=== PATIENT | male | born 1965 | race Caucasian/White ===

== ENCOUNTER 2017-04-04 09:11 | Day surgery (SDC) | payer BC ==
[~2017-04-04 09:11] MED LIST: Acetaminophen TAB* 325 MG PO PRN; Buffered Lidocaine 0.9% SYRIN* 5 ML/SYR SYRINGE INTRADERM ONE
[2017-04-04] MEDS ORDERED: Midazolam* 1 MG/ML 2 ML VIAL (2 MG) ONE ×2 (10:07→10:43)
[2017-04-04] MEDS ORDERED: fentaNYL* 50 MCG/ML 2 ML VIAL (100 MCG VIAL) ONE (10:40)
[2017-04-04 11:29] VITALS: BP 115/76
[2017-04-04] MEDS ORDERED: Lidocaine 1% MPF* 2 ML VIAL ONE (11:43)
[2017-04-04] MEDS ORDERED: Tetracaine 0.5% OPTH.SOL 4 ML* 1 DROP BTL ONE (11:43)
[2017-04-04] MEDS ORDERED: Povidone Iodine 5% OPTH* 30 ML BTL ONE (11:43)
[2017-04-04] MEDS ORDERED: Neomycin/Polymy/Dex OPHTH.OIN* 3.5 GM ONE (11:43)
[2017-04-04] MEDS ORDERED: Phenylephrine 2.5% OPTH.SOL* 2 ML BTL ONE (11:43)
[2017-04-04] MEDS ORDERED: acetaZOLAMIDE TAB* 250 MG ONE (11:43)
[2017-04-04] MEDS ORDERED: Tropicamide 1% OPTH.SOL* BTL ONE (11:43)
[2017-04-04] MEDS ORDERED: Cyclopentolate 1% OPTH.SOL* 2 ML BTL ONE (11:43)
[2017-04-04] MEDS ORDERED: Ketorolac 0.5% OPHTH (NF) 0.5 % 5 ML BTL ONE (11:43)
--- NOTE | 2017-04-04 22:03 | OP ---
DATE OF OPERATION: 04/04/17 - [facility] DATE OF : 61 SURGEON: Basim Stewart MD. ANESTHESIOLOGIST: Graciela Moore MD ANESTHESIA: Monitored anesthesia care. PRE-OP DIAGNOSIS: Cataract, right eye. POST-OP DIAGNOSIS: Cataract, right eye. OPERATIVE PROCEDURE: Extracapsular cataract extraction of the right eye with intraocular lens implant. IMPLANTS: SN60WF 20.0 diopter lens to the right eye. COMPLICATIONS: None. DESCRIPTION OF PROCEDURE: The patient was given phenylephrine 2.5% and cyclopentolate 1% eye drops to the operative eye in the preoperative area. The patient was brought to the operating room where a time-out was taken to identify the correct patient, site and side of surgery. The patient's right eye was prepped and draped in the usual sterile fashion with 5% Betadine. A second time-out was taken to verify the correct patient, site and side of surgery, and correct lens selection. A lid speculum was placed to the right eye. A 1-mm paracentesis blade was used to make a clear corneal incision in the superotemporal position. Preservative-free 1% lidocaine was injected into the anterior chamber. DisCoVisc was then injected into the anterior chamber. A 2.75 mm keratome blade was used to make a triplanar incision at the inferotemporal position. A cystotome initiated a capsulorrhexis which was completed with Utrata forceps in a continuous and curvilinear manner. Hydrodissection of the lens was performed with BSS on a cannula. The lens could be spun in the capsular bag. The phacoemulsification handpiece was used with a [id number]-[id number] technique to remove the nucleus in its entirety with 19.0 CDE. The I/A handpiece then removed the residual cortical lens material. DisCoVisc was injected to inflate the capsular bag. The planned SN60WF 20.0 diopter lens was injected in the capsular bag. The residual DisCoVisc was removed from the eye with the I/A handpiece. The corneal incisions were hydrated and no leaks occurred at physiologic pressure around 20 mmHg per palpation. The lid speculum was removed and drapes removed. Maxitrol ointment was placed on the surface of the operative eye. An adhesive patch and shield was then placed on the operative eye. The patient was taken to the postoperative area in stable condition. [id number]/[facility] #: [id number] MTDD
== END 2017-04-04 11:22 | disposition home or self-care (01) ==
LOC: OREAST 09:11
PROVIDERS: ATTEND Student in an Organized Health Care Education/Training Program
DX: H25.11 Age-related nuclear cataract, right eye (principal); F17.210 Nicotine dependence, cigarettes, uncomplicated; F41.9 Anxiety disorder, unspecified
CPT/HCPCS: A9270-GY; J2250; J3010; V2632

== ENCOUNTER 2019-04-21 19:28 | Emergency (ER) | payer BC ==
[2019-04-21 19:33] VITALS: BP 154/90
[2019-04-21] MEDS ORDERED: Diazepam TAB(*) 5 MG PO ONE (20:16)
--- NOTE | 2019-04-21 20:26 | ED ---
Back Pain - HPI Summary HPI Summary: 53-year-old male presents to emergency department today with a chief complaint of right-sided low back pain. Patient states 2 days ago he slipped on ice and today was at work 45 minutes ago when he sneezed and felt sudden onset right- sided low back pain. Patient endorses 9 out of 10 back pain which is made worse with movement. Patient has not taken any medication prior to arrival for alleviation of his pain. Patient denies saddle paresthesia, numbness or tingling in his legs, incontinence. Patient denies fever. Patient has full range of motion of the spine however he does so with pain. Patient has a normal gait. Patient otherwise feels well denies fever, chest pain, abdominal pain, pain with urination, rash, nausea, vomiting, diarrhea. Surgical history family history is noncontributory. Patient has no ecchymosis, erythema, edema of the back. There is no midline tenderness to palpation of the cervical, thoracic, lumbar spine. - History of Current Complaint Chief Complaint: EDBackInjuryPain Stated Complaint: BACK PAIN PER PT Time Seen by Provider: 04/21/19 19:48 Hx Obtained From: Patient Onset/Duration: Sudden Onset Onset/Duration: Started Hours Ago Timing: Constant Severity Initially: Severe Severity Currently: Severe Pain Intensity: 10 Pain Scale Used: 0-10 Numeric Character: Sharp Aggravating Symptom(s): Movement, Lifting, Bending, Cough Alleviating Symptom(s): Rest Associated Signs And Symptoms: Negative: Swelling, Redness, Bruising, Fever, Tingling, Bladder Incontinence, Bowel Incontinence - Allergies/Home Medications Allergies/Adverse Reactions: Allergies Allergy/AdvReac Type Severity Reaction Status Date / Time Seasonal Allergies Allergy Runny Nose Uncoded 04/21/19 19:30 Home Medications: Home Medications Aspirin 325 MG TAB* 04/04/17 [History] Cyclobenzaprine TAB* [Flexeril 10 MG TAB*] 10 mg PO TID PRN #12 tab 04/21/19 [Rx ] PMH/Surg Hx/FS Hx/Imm Hx Cardiovascular History: Denies: Other Cardiovascular Problems/Disorders Respiratory History: Denies: Other Respiratory Problems/Disorders GI History: Denies: Other GI Disorders History: Reports: Hx Kidney Stones - x 5, last one 2016 Denies: Other Problems/Disorders Musculoskeletal History: Reports: Other Musculoskeletal History - Muscle in abdomen deformity from -didn't come together Sensory History: Reports: Hx Cataracts - Right eye, Hx Contacts or Glasses - Reading glasses-magnifiers Denies: Hx Hearing Aid Opthamlomology History: Reports: Hx Cataracts - Right eye, Hx Contacts or Glasses - Reading glasses-magnifiers Neurological History: Denies: Other Neuro Impairments/Disorders - Surgical History Surgery Procedure, Year, and Place: Dental procedures Hx Anesthesia Reactions: No - Immunization History Date of Influenza Vaccine: none Infectious Disease History: No Infectious Disease History: Denies: Traveled Outside the [place] in Last 30 Days - Social History Alcohol Use: None Substance Use Type: Reports: None Smoking Status (MU): Heavy Every Day Tobacco Smoker Amount Used/How Often: 1 ppd for 36 years Have You Smoked in the Last Year: Yes Review of Systems Constitutional: Negative Eyes: Negative ENT: Negative Cardiovascular: Negative Respiratory: Negative Gastrointestinal: Negative Genitourinary: Negative Positive: Myalgia Skin: Negative Neurological/Mental Status: Negative Psychological: Normal All Other Systems Reviewed And Are Negative: Yes Physical Exam - Summary Physical Exam Summary: Patient is no acute distress. There is no pain with palpation of the cervical, thoracic, or lumbar spine. No ecchymosis, erythema, edema the back. Patient is full range of motion of the spine. Triage Information Reviewed: Yes Vital Signs On Initial Exam: Initial Vitals Temp Pulse Resp BP Pulse Ox 98.6 F 74 18 154/90 98 04/21/19 19:30 04/21/19 19:30 04/21/19 19:30 04/21/19 19:30 04/21/19 19:30 Vital Signs Reviewed: Yes Appearance: Positive: Well-Appearing, No Pain Distress, Well-Nourished Skin: Positive: Warm, Skin Color Reflects Adequate Perfusion Eyes: Positive: EOMI, KATY ENT: Positive: Hearing grossly normal Respiratory/Lung Sounds: Positive: Clear to Auscultation, Breath Sounds Present Cardiovascular: Positive: RRR, S1, S2 Abdomen Description: Positive: Nontender, Soft Bowel Sounds: Positive: Present Musculoskeletal: Positive: Strength/ROM Intact Neurological: Positive: Sensory/Motor Intact, Alert, Oriented to Person Place, Time, Normal Gait, Facial Symmetry, Speech Normal Psychiatric: Positive: Normal, Affect/Mood Appropriate AVPU Assessment: Alert Procedures - Sedation Patient Received Moderate/Deep Sedation with Procedure: No Diagnostics - Vital Signs Vital Signs Temp Pulse Resp BP Pulse Ox 04/21/19 19:30 98.6 F 74 18 154/90 98 - Laboratory Lab Statement: Any lab studies that have been ordered have been reviewed, and results considered in the medical decision making process. Back Pain Course/Dx - Course Course Of Treatment: Patient was evaluated in the emergency department today for back pain. Vitals noted. No evidence of, or epidural abscess. Patient had no midline tenderness with palpation. Patient's back pain is consistent with mechanical back pain and muscle strain. Patient given 10 mg of Valium in the emergency department as well as prescription for muscle relaxers and instructed to take ibuprofen as well. Patient discharged with outpatient follow -up. - Diagnoses Differential Diagnosis/HQI/PQRI: Positive: Cauda Equina Syndrome, Compressive Cord Syndrome, Epidural Abscess, Herniated Disc, Strain, Sprain Provider Diagnoses: Back pain Discharge ED - Sign-Out/Discharge Documenting (check all that apply): Patient Departure - Discharge Plan Condition: Stable Disposition: HOME Prescriptions: Cyclobenzaprine TAB* [Flexeril 10 MG TAB*] 10 mg PO TID PRN #12 tab PRN Reason: Pain - Moderate Patient Education Materials: Low Back Strain (ED) Referrals: Adonis Wills PA [Primary Care Provider] - 3 Days Additional Instructions: You were seen in the emergency department today for back pain. Please follow up with your primary care physician in 5 days for further evaluation and management of your injury. Please take for your symptoms: * Ibuprofen 600mg three times daily with meals for pain. (Anti Inflammatory) * Flexeril 10mg every 6 hours as needed for pain. (Muscle relaxant) Most people with an episode of low back pain do not have a serious medical problem, and can try simple treatments such as: ?Staying active The best thing you can do is to stay as active as possible. People with low back pain recover faster if they stay active. If your pain is severe, you might need to rest for a day or 2. But it's important to get back to walking and moving as soon as possible. While you should avoid heavy lifting and sports while your back hurts, try to keep doing your normal daily activities. ?Heat Some people find that it helps to use a heating pad or heated wrap. Be careful to avoid high heat settings to prevent skin montalvo. Spinal manipulation This is when a chiropractor, physical therapist, or other professional moves or "adjusts" the joints of your back. If you want to try this, talk to your doctor or nurse first. Acupuncture This is when someone who knows traditional [place] medicine inserts tiny needles into your body to block pain signals. Massage While back pain usually goes away within a few weeks, some people do continue to have pain for longer. In this case, additional treatments might include: ?Self care This involves being aware of your pain. While you should rest when you need to, it's important to stay active as much as you can. Things like applying heat and doing gentle stretches can help you feel better, too. ?Physical therapy A physical therapist is an exercise expert who can teach you stretches and movements to help strengthen your muscles. The goal is to relieve pain but also help you get back to your normal activities. Exercises you can try include walking, swimming, or using an exercise bike. Some people also find that Neil Chi or yoga can help with their back pain. Finding activities you enjoy can help you stay active. ?Reducing stress Some people find that it helps to try something called "mindfulness-based stress reduction." This involves going to a group program to practice relaxation and meditation. If your back pain is making you feel anxious or depressed, talk to your doctor or nurse. There are other treatments that can help with these problems. Only a small number of people end up needing surgery to treat back pain. - Billing Disposition and Condition Condition: STABLE Disposition: Home
== END 2019-04-21 20:34 | disposition home or self-care (01) ==
LOC: ED 19:28
DX: M54.9 Dorsalgia, unspecified (principal); F17.200 Nicotine dependence, unspecified, uncomplicated; Z87.442 Personal history of urinary calculi
CPT/HCPCS: 99282; A9270-GY